=== PATIENT | female | born 2005 | race African-American/Black ===

== ENCOUNTER → 2024-10-11 16:19 | Outpatient (CLI) | payer OTHER, SELFPAY ==
[2024-10-11 20:16] LABS: Urine N gonorrhoeae NOT DETECTED
[2024-10-11 20:22] LABS: Urine Chlamydia NOT DETECTED
== END ==
PROVIDERS: Visit Provider Obstetrics & Gynecology
DX: Z11.3 Encounter for screening for infections with a predominantly sexual mode of transmission (principal); Z3A.08 8 weeks gestation of pregnancy
CPT/HCPCS: 87491; 87591

== ENCOUNTER 2024-10-23 13:21 | Emergency (ER) | payer OTHER, SELFPAY ==
[2024-10-23 13:30] VITALS: BP 122/64; PULSE 94; RESP 18; TEMP 36.9; O2SAT 100; BMI 21.4
--- NOTE | 2024-10-23 14:27 | DI.US.S_ITS ---
PROCEDURE: US OB <= 14 WEEKS FETUS INDICATIONS: ABDOMINAL/PELVIC PAIN OUTSIDE/PRIOR DATING DATA: Last menstrual period (LMP): 08/14/2024 LMP-based estimated date of delivery (KURT): 05/21/2025 First dating scan (date and location): 10/11/2024 Estimated date of delivery (KURT) from first dating scan: 05/20/2025. The calculations are made using the working KURT of 05/21/2025. TECHNIQUE: Real-time scanning was performed of the fetus, with image documentation and biometric measurements. Endovaginal scanning: Performed COMPARISON: None. FINDINGS: Single intrauterine gestational sac is seen with fetus and yolk sac seen. [place]-rump length measures 3.3 cm. Estimated gestational age based on current study is 10 weeks, 2 days. Estimated gestational age based on initial study is 10 weeks, 0 day. Subchorionic hematoma measures 2.3 x 4.2 x 1.6 cm in size is seen. Possible corpus luteum is seen in right ovary . Normal appearing left ovary. IMPRESSION: 1. Single live intrauterine gestation with fetus and yolk sac seen. heart rate is 169 beats per minute. Normal growth. 2. Small subchorionic hematoma as above. 3. Possible small corpus luteum seen in right ovary. We strive to produce accurate, complete, and clear reports of imaging services. To assist us in improving patient care, this report was composed using standard report templates and voice recognition software. Therefore, it may contain abnormal punctuation, insertions and/or omissions. Occasional wrong-word or sound-alike substitutions may occur. Though we review the report and make efforts to correct it, we do recommend that the report be read carefully in proper context to recognize any text inaccuracies. Dictated by: Chavez Arias M.D. on 10/23/2024 at 16:22 Approved by: Chavez Arias M.D. on 10/23/2024 at 16:26
--- NOTE | 2024-10-23 14:30 | ED.PREGNANCY ---
HPI - General Chief complaint: OB/Uterine Contractions Stated complaint: pain in stomach down the legs Time Seen by Provider: 10/23/24 14:21 Source: patient Mode of arrival: Ambulatory Limitations: no limitations History of Present Illness HPI Narrative: Patient here with . Patient is A1. LMP August 14. Expected due date is May 21, 2025. Patient has seen MATIAS Healy here locally. Patient on vitamins. Patient had office visit October 11, 2024. In last 4 days patient has had lower abdominal bilateral below the umbilicus pelvic cramping sharp pain. Pain will radiate from rectal area as well as vaginal area. Has had nausea but no vomiting. No vaginal bleeding or fluid leak. Patient has had OB ultrasound already to confirm and IUP in the office.. Patient denies any urinary complaints. Related Data Home Medications ?Medication ?Instructions ?Recorded ?Confirmed cranberry fruit concentrate 250 mg 250 mg PO DAILY 09/27/24 10/11/24 chewable tablet (Azo Cranberry) vitamin-ferrous sulfate tab PO 09/27/24 10/11/24 27 mg iron-folic acid 0.8 mg tablet Previous Rx's ?Medication ?Instructions ?Recorded ondansetron 4 mg disintegrating 4 mg PO Q6H #20 tabs 10/15/24 tablet Allergies Allergy/AdvReac Type Severity Reaction Status Date / Time cucumber Allergy Intermediate Swelling Verified 10/11/24 15:41 of Lip/Tongue/Throat Review of Systems Review of Systems Narrative: GENERAL: Negative chills, fatigue, malaise, fever, sweats. HEENT: Negative sinus pain, ear pain, sore throat RESPIRATORY: Negative dyspnea, cough CARDIOVASCULAR: Negative chest pain, palpitations GASTROINTESTINAL: Negative vomiting, positive nausea, abdominal pain : Negative dysuria, frequency, hematuria MUSCULOSKELETAL: Negative muscle or bony pain SKIN: Negative rash, skin lesions NEUROLOGIC: Negative weakness, numbness ROS Unobtainable: All systems reviewed & are unremarkable except as noted in HPI and below Exam Narrative Exam Narrative: GENERAL: in no distress, not toxic not dyspneic HEAD: Normocephalic. EYES: Pupils equal round ENT: Mucous membranes moist. NECK: Trachea midline. CARDIOVASCULAR: Regular rate and rhythm RESPIRATORY: Clear to auscultation. Breath sounds equal bilaterally. No wheezes, rales, or rhonchi. GASTROINTESTINAL: Abdomen soft, there is mild diffuse lower have abdominal tenderness. No guarding no rebound. No pain out of portion to exam. No CVA tenderness. Bowel sounds are present. No peritoneal signs., no McBurney point tenderness EXTREMITIES: No gross deformities. BACK: No flank tenderness. NEURO: AOx4. Clear speech SKIN: Warm and dry PSYCH: Not anxious, is cooperative Initial Vital Signs Initial Vital Signs: Vital Signs Temperature 98.4 F 10/23/24 13:30 Pulse Rate 94 H 10/23/24 13:30 Respiratory Rate 18 10/23/24 13:30 Blood Pressure 122/64 10/23/24 13:30 Pulse Oximetry 100 10/23/24 13:30 Oxygen Delivery Method Room Air 10/23/24 13:30 Course Orders Ordered: Discontinued Medications Acetaminophen (Acetaminophen 325 Mg Tablet) 975 mg PO NOW ONE Stop: 10/23/24 16:32 Last Admin: 10/23/24 17:49 Dose: Not Given Documented By: GW Vital Signs Vital signs: Vital Signs - 8 hr 10/23/24 13:30 Temperature 98.4 F Pulse Rate 94 H Respiratory Rate 18 Blood Pressure 122/64 Pulse Oximetry 100 Oxygen Delivery Method Room Air MDM - OB/Uterine Contractions Lab Data 10/23/24 15:14 10/23/24 15:14 Labs: Lab Results 10/23/24 Range/Units 15:14 WBC 10.4 (4.5-11.0) X10^3/uL RBC 3.99 L (4.0-5.2) X10^6/uL Hgb 12.8 (12.0-16.0) g/dL Hct 36.2 (36-46) % MCV 90.8 (80-100) fL MCH 32.0 (26-34) PG MCHC 35.3 (30-36) % RDW 12.3 (11.6-14.8) % Plt Count 332 (150-400) X10^3/uL Neut % (Auto) 72.4 (50-75) % Lymph % (Auto) 19.8 L (25-40) % Wells % (Auto) 5.6 (3-14) % Eos % (Auto) 1.6 L (2-4) % Baso % (Auto) 0.6 (0-2) % Neut # (Auto) 7500 H (6858-8431) /uL Lymph # (Auto) 2100 (8312-1567) /uL Wells # (Auto) 600 (0-900) /uL Eos # (Auto) 200 (0-450) /uL Baso # (Auto) 100 (0-100) /uL Sodium 136 L (137-145) mmol/L Potassium 3.6 (3.4-5.1) mmol/L Chloride 105 (98-107) mmol/L Carbon Dioxide 25 (22-32) mmol/L BUN 4 L (7-17) mg/dL Creatinine 0.46 L (0.52-1.04) mg/dL Estimated GFR > 60 (>60) mL/min BUN/Creatinine Ratio 8.7 (6-22) Glucose 58 L (70-99) mg/dL Calcium 9.4 (8.4-10.2) mg/dL Total Bilirubin 0.8 (0.2-1.3) mg/dL AST 21 (14-36) IU/L ALT 14 (<35) IU/L Alkaline Phosphatase 36 L (38-126) U/L Total Protein 7.2 (6.3-8.2) g/dL Albumin 4.4 (3.5-5.0) g/dL Globulin 2.8 (1.7-4.1) g/dL Albumin/Globulin Ratio 1.6 (1.0-2.8) Lipase 82 (23-300) U/L Point of Care Testing Test Results Positive Urine Dip Bedside Urine Glucose Negative Bedside Urine Bilirubin - Negative Bedside Urine Ketone - Negative Urine Specific [place] 1.005 Bedside Urine Occult Blood - Negative Bedside Urine pH 7.5 Bedside Urine Protein - Negative Bedside Urine Urobilinogen - Negative Bedside Urine Nitrite - Negative Bedside Urine Leukocytes - Negative Esterase Imaging Data US - OB: Radiologist's Impression: [address] [address] Ultrasound Report Signed Patient: Slime Terry MR#: [id number] : 2005 Acct:[id number] Age/Sex: 19 / F Date of Service: 10/23/24 Loc: ED Accession Number: [id number] Procedure: US OB <= 14 weeks fetus Ordering Provider: Gus Odom MD PROCEDURE: US OB <= 14 WEEKS FETUS INDICATIONS: ABDOMINAL/PELVIC PAIN OUTSIDE/PRIOR DATING DATA: Last menstrual period (LMP): 08/14/2024 LMP-based estimated date of delivery (KURT): 05/21/2025 First dating scan (date and location): 10/11/2024 Estimated date of delivery (KURT) from first dating scan: 05/20/2025. The calculations are made using the working KURT of 05/21/2025. TECHNIQUE: Real-time scanning was performed of the fetus, with image documentation and biometric measurements. Endovaginal scanning: Performed COMPARISON: None. FINDINGS: Single intrauterine gestational sac is seen with fetus and yolk sac seen. [place]-rump length measures 3.3 cm. Estimated gestational age based on current study is 10 weeks, 2 days. Estimated gestational age based on initial study is 10 weeks, 0 day. Subchorionic hematoma measures 2.3 x 4.2 x 1.6 cm in size is seen. Possible corpus luteum is seen in right ovary . Normal appearing left ovary. IMPRESSION: 1. Single live intrauterine gestation with fetus and yolk sac seen. heart rate is 169 beats per minute. Normal growth. 2. Small subchorionic hematoma as above. 3. Possible small corpus luteum seen in right ovary. We strive to produce accurate, complete, and clear reports of imaging services. To assist us in improving patient care, this report was composed using standard report templates and voice recognition software. Therefore, it may contain abnormal punctuation, insertions and/or omissions. Occasional wrong-word or sound-alike substitutions may occur. Though we review the report and make efforts to correct it, we do recommend that the report be read carefully in proper context to recognize any text inaccuracies. Dictated by: Chavez Arias M.D. on 10/23/2024 at 16:22 Approved by: Chavez Arias M.D. on 10/23/2024 at 16:26 [facility] Narrative Medical decision making narrative: Patient here with . Patient is A1. LMP August 14. Expected due date is May 21, 2025. Patient has seen MATIAS Healy here locally. Patient on vitamins. Patient had office visit October 11, 2024. In last 4 days patient has had lower abdominal bilateral below the umbilicus pelvic cramping sharp pain. Pain will radiate from rectal area as well as vaginal area. Has had nausea but no vomiting. No vaginal bleeding or fluid leak. Patient has had OB ultrasound already to confirm and IUP in the office.. Patient denies any urinary complaints. After history and exam, CBC CMP lipase urinalysis heart tones Ob ultrasound [facility] Medical records reviewed: OB office visit October 11, 2024 notes Differential considered: Includes but not limited to discomfort UTI premature contractions appendicitis kidney stone pyelonephritis cystitis, threatened miscarriage, missed Lab Test results independently reviewed as above. Pertinent findings: WBC 10.4 hemoglobin 12.8 sodium 136 potassium 3.6 lipase 82 AST 21 ALT 14 urinalysis negative nitrite negative leukocytes Imaging studies independently reviewed: Ultrasound OB single IUP, subchorionic hematoma Consultations: 5:00 p.m.. I spoke with Dr. Boss, on-call for Dr. Brewer OBGYN. Patient to be discharged home. Findings of the bleed is common in 1st trimester. There may be bleeding through the cervix as expected outcome. Patient to call office in the morning for follow up. Re-evaluations: 5:15 p.m.. Updated patient results exam and my discussion with OBGYN. She does understand there is a small bleed but this is a common finding and may have vaginal bleeding afterwards. She is to call Dr. Brewer office in the morning for follow up this week. Return precautions reviewed. Appendicitis precautions reviewed. She desires discharge home. Discussion: Appropriate for discharge home. Exam is reassuring. Blood work is reassuring urinalysis reassuring. Ultrasound is reassuring. Appendicitis precautions reviewed with patient. No MRI indicated at this time. Diagnosis: Abdominal pain in Discharge Plan Departure Patient Disposition: Home Clinical Impression: Abdominal pain during Qualifiers: Trimester: unspecified trimester Qualified Code(s): O26.899 - Other specified related conditions, unspecified trimester Instructions: DI for -- Discomforts and Remedies Activity Restrictions/Additional Instructions: Your exam and laboratory studies and imaging studies are reassuring at this time. However, return immediately if worse if any questions or concerns. Please call your OBGYN provider, Dr. Brewer, tomorrow for office appointment this week for re-evaluation. Return if worse if any questions or concerns. Continue Tylenol for pain. Prescriptions: No Action vit-ferrous sulfat-FA 27 mg iron- 0.8 mg tablet PO Azo Cranberry 250 mg tablet,chewable 250 mg PO DAILY ondansetron 4 mg tablet,disintegrating 4 mg PO Q6H Qty: 20 2RF Referrals: Miscellaneous,Doctor, MD [Primary Care Provider, Medical] Stand Alone Forms: Patient Portal/API, Work Release Note
[2024-10-23 15:23] LABS: Add Manual Diff / Slide Review NO; Basophils Absolute Auto 100 /uL (0-100); Basophils Percent Auto 0.6 % (0-2); Eosinophils Absolute Auto 200 /uL (0-450); Eosinophils Percent Auto 1.6 % (2-4); Hematocrit 36.2 % (36-46); Hemoglobin 12.8 g/dL (12.0-16.0); Lymphocytes Absolute Auto 2100 /uL (1100-4500); Lymphocytes Percent Auto 19.8 % (25-40); Mean Corpuscular HGB Conc 35.3 % (30-36); Mean Corpuscular Volume 90.8 fL (80-100); Monocytes Absolute Auto 600 /uL (0-900); Monocytes Percent Auto 5.6 % (3-14); Neutrophils Absolute Auto 7500 /uL (1500-7000); Neutrophils Percent Auto 72.4 % (50-75); Platelet Count 332 X10^3/uL (150-400); Red Blood Cell Count 3.99 X10^6/uL (4.0-5.2); Red Cell Distribution Width 12.3 % (11.6-14.8); White Blood Cell Count 10.4 X10^3/uL (4.5-11.0)
[2024-10-23 15:37] LABS: Alanine Aminotransferase 14 IU/L (<35); Albumin 4.4 g/dL (3.5-5.0); Albumin Globulin Ratio 1.6 (1.0-2.8); Alkaline Phosphatase 36 U/L (38-126); Aspartate Aminotransferase 21 IU/L (14-36); BUN Creatinine Ratio 8.7 (6-22); Bilirubin Total 0.8 mg/dL (0.2-1.3); Blood Urea Nitrogen 4 mg/dL (7-17); Calcium 9.4 mg/dL (8.4-10.2); Carbon Dioxide 25 mmol/L (22-32); Chloride 105 mmol/L (98-107); Estimated Glomerular Filt Rate > 60 mL/min (>60); Globulin 2.8 g/dL (1.7-4.1); Glucose 58 mg/dL (70-99); HEMOLYSIS < 15 (0-50); Lipase 82 U/L (23-300); Potassium 3.6 mmol/L (3.4-5.1); Sodium 136 mmol/L (137-145); Total Protein 7.2 g/dL (6.3-8.2)
[2024-10-23 17:50] VITALS: BP 106/60; PULSE 78; RESP 16; O2SAT 99
== END 2024-10-23 18:07 | disposition home or self-care (01) ==
PROVIDERS: Emergency Provider Emergency Medicine
DX: O26.891 Other specified pregnancy related conditions, first trimester (principal); R10.9 Unspecified abdominal pain; Z3A.10 10 weeks gestation of pregnancy
CPT/HCPCS: 76801; 76817; 80053; 81003; 81025; 83690; 85025; 99282; 99284

== ENCOUNTER → 2024-10-31 16:29 | Outpatient (CLI) | payer OTHER, SELFPAY ==
[2024-10-31 17:39] LABS: Natera Collection Specimen Collected
[2024-10-31 20:59] LABS: Add Manual Diff / Slide Review NO; Basophils Absolute Auto 100 /uL (0-100); Basophils Percent Auto 0.6 % (0-2); Eosinophils Absolute Auto 300 /uL (0-450); Eosinophils Percent Auto 2.8 % (2-4); Hematocrit 36.4 % (36-46); Hemoglobin 12.6 g/dL (12.0-16.0); Lymphocytes Absolute Auto 2100 /uL (1100-4500); Lymphocytes Percent Auto 21.2 % (25-40); Mean Corpuscular HGB Conc 34.7 % (30-36); Mean Corpuscular Hemoglobin 31.8 PG (26-34); Mean Corpuscular Volume 91.5 fL (80-100); Monocytes Absolute Auto 500 /uL (0-900); Monocytes Percent Auto 4.9 % (3-14); Neutrophils Absolute Auto 7100 /uL (1500-7000); Neutrophils Percent Auto 70.5 % (50-75); Platelet Count 308 X10^3/uL (150-400); Red Blood Cell Count 3.98 X10^6/uL (4.0-5.2); Red Cell Distribution Width 12.6 % (11.6-14.8)
[2024-11-01 17:02] LABS: Hepatitis B Surface Antigen NEGATIVE s/c (NEGATIVE); Rubella Antibody IgG 17.1 IU/mL (>15)
[2024-11-01 17:44] LABS: HIV 1 & 2 Ab/Ag 4th Gen Combo NEGATIVE (NEGATIVE); Hep C Virus Ab w/Reflex Quant NEGATIVE s/c (NEGATIVE)
== END ==
PROVIDERS: Referring Provider Obstetrics & Gynecology; Visit Provider Obstetrics & Gynecology
DX: Z34.80 Encounter for supervision of other normal pregnancy, unspecified trimester (principal); Z3A.11 11 weeks gestation of pregnancy
CPT/HCPCS: 80055; 86787; 86803; 86850; 86900; 86901; 87389

== ENCOUNTER → 2024-11-06 17:34 | Outpatient (CLI) | payer OTHER, SELFPAY | PROVIDERS: Visit Provider Nurse Practitioner Family | DX: O26.899 Other specified pregnancy related conditions, unspecified trimester (principal); N89.8 Other specified noninflammatory disorders of vagina; R30.0 Dysuria | CPT/HCPCS: 87086; 87210 ==

== ENCOUNTER → 2024-11-27 12:00 | Outpatient (CLI) | payer OTHER, SELFPAY | LOC: LAB 12-19 18:05 | PROVIDERS: Referring Provider Obstetrics & Gynecology; Visit Provider Obstetrics & Gynecology | DX: Z34.80 Encounter for supervision of other normal pregnancy, unspecified trimester (principal) | CPT/HCPCS: 87086 ==

== ENCOUNTER → 2024-12-11 17:09 | Outpatient (CLI) | payer OTHER, SELFPAY ==
[2024-12-11 18:02] LABS: Appearance Urine UA CLEAR; Bilirubin Urine UA NEGATIVE (NEGATIVE); Color Urine UA YELLOW; Glucose Urine UA NEGATIVE (Negative); Ketones Urine UA 1+ (NEGATIVE); Leukocyte Esterase Urine UA 1+ (NEGATIVE); Nitrite Urine UA NEGATIVE (Negative); Occult Blood Urine UA TRACE-INTACT (Negative); Protein Urine UA NEGATIVE (Negative); Specific Gravity Urine UA 1.010 (1.000-1.035); Urobilinogen Urine UA 0.2 E.U./dL (0.2)
[2024-12-11 18:04] LABS: pH Urine UA 6.0 (4.5-8.0)
[2024-12-11 18:08] LABS: Culture Indicated Urine Specimen Cultured
== END ==
PROVIDERS: Referring Provider Obstetrics & Gynecology; Visit Provider Obstetrics & Gynecology
DX: R82.90 Unspecified abnormal findings in urine (principal)
CPT/HCPCS: 81001; 87086

== ENCOUNTER → 2024-12-14 17:06 | Outpatient (CLI) | payer OTHER, SELFPAY | PROVIDERS: Referring Provider Obstetrics & Gynecology; Visit Provider Obstetrics & Gynecology | DX: Z34.02 Encounter for supervision of normal first pregnancy, second trimester (principal) | CPT/HCPCS: 36415; 82105 ==

== ENCOUNTER → 2025-02-01 15:35 | Outpatient (CLI) | payer OTHER, SELFPAY ==
[2025-02-01 17:49] LABS: Hematocrit 34.6 % (36-46); Hemoglobin 12.3 g/dL (12.0-16.0)
[2025-02-01 18:10] LABS: GTT (PREG) 1 Hour PP 50gm Dose 103 mg/dL (76-139)
[2025-02-05 20:10] LABS: Gest Age on Col Date 24.4 weeks (.); OSBR Risk 1IN See interpretation. (.)
== END ==
PROVIDERS: Referring Provider Obstetrics & Gynecology; Visit Provider Obstetrics & Gynecology
DX: Z34.80 Encounter for supervision of other normal pregnancy, unspecified trimester (principal); Z34.82 Encounter for supervision of other normal pregnancy, second trimester; Z3A.25 25 weeks gestation of pregnancy
CPT/HCPCS: 36415; 82105; 82950; 85014; 85018